=== PATIENT | female | born 1930 | race Caucasian/White ===

== ENCOUNTER 2019-04-23 10:06 | Emergency (ER) | payer MEDICARE ==
[~2019-04-23] VITALS: Ht 149.9 cm; Wt 59.0 kg
[~2019-04-23 10:06] MED LIST: ASPI81CH; ASPI81EC PO; ATEN25; BENAML10/2; CEPH500 PO; CIPR500 PO; DILT180ER PO; FERR325 PO; FURO20; FURO20 PO; OMEP20ER PO; POTCHL10ER; POTCHL20ER PO; PRED10 PO; Tylenol325 MG PO; WARF5 PO
[2019-04-23 11:04] LABS: BASOPHILS ABSOLUTE AUTO 0.05 K/mm3 (0.00-0.23); BASOPHILS PERCENT AUTO 1 % (0-2); EOSINOPHILS ABSOLUTE AUTO 0.08 K/mm3 (0.00-0.68); EOSINOPHILS PERCENT AUTO 1 % (0-6); Hematocrit 42.3 % (33.0-51.0); Hemoglobin 13.7 g/dL (11.5-16.0); IMMATURE GRAN ABSOLUTE AUTO 0.02 K/mm3 (0.00-0.10); IMMATURE GRAN PERCENT AUTO 0 % (0-1); LYMPHOCYTES PERCENT AUTO 14 % (21-46); MONOCYTES ABSOLUTE AUTO 0.47 K/mm3 (0.16-1.47); MONOCYTES PERCENT AUTO 5 % (4-13); Mean Corpuscular HGB 30.6 pg (26.0-34.0); Mean Corpuscular HGB Conc 32.4 g/dL (31.5-36.5); Mean Corpuscular Volume 95 fL (80-100); Mean Platelet Volume 10.3 fL (9.1-12.4); NEUTROPHILS ABSOLUTE AUTO 7.13 K/mm3 (1.96-9.15); NEUTROPHILS PERCENT AUTO 79 % (41-73); Platelet Count 224 K/mm3 (150-400); RDW Coefficient Variation 13.2 % (11.7-14.2); Red Blood Cell Count 4.47 M/mm3 (3.80-5.20); White Blood Cell Count 9.05 K/mm3 (4.00-11.30)
[2019-04-23 11:37] LABS: Albumin, Blood 4.1 g/dL (3.4-5.0); Bilirubin, Total 0.7 mg/dL (0.1-1.0); Bun/Creatinine Ratio 28.2 (12.0-20.0); Calcium, Blood 9.6 mg/dL (8.5-10.1); Creatinine, Blood 0.99 mg/dL (0.40-1.00); Globulin, Blood 4.3 g/dL (2.2-4.0); Total Protein, Blood 8.4 g/dL (6.4-8.2)
[2019-04-23] MEDS ORDERED: ONDA4ODT MM (12:21)
== END 2019-04-23 12:36 | disposition home or self-care (01) ==
LOC: ER 10:06
PROVIDERS: Physician Assistant
DX: K52.9 Noninfective gastroenteritis and colitis, unspecified (principal); Z88.0 Allergy status to penicillin; Z88.5 Allergy status to narcotic agent; Z79.899 Other long term (current) drug therapy
CPT/HCPCS: 36415; 80053; 83690; 85025; 96361; 96374; 96376; 99284-25; J2405; J7030

== ENCOUNTER 2020-01-21 15:33 | Emergency (ER) | payer MEDICARE ==
[~2020-01-21] VITALS: Ht 149.9 cm; Wt 62.6 kg
[~2020-01-21 15:33] MED LIST changes: +ONDA4ODT MM
[2020-01-21] MEDS ORDERED: KEFLEX500 MG PO (19:30)
== END 2020-01-21 19:59 | disposition home or self-care (01) ==
LOC: ER 15:33
DX: S81.811A Laceration without foreign body, right lower leg, initial encounter (principal); S05.10XA Contusion of eyeball and orbital tissues, unspecified eye, initial encounter; D68.9 Coagulation defect, unspecified; Z23 Encounter for immunization; Z88.0 Allergy status to penicillin; Z88.1 Allergy status to other antibiotic agents; Z88.8 Allergy status to other drugs, medicaments and biological substances; Z79.01 Long term (current) use of anticoagulants; W45.8XXA Other foreign body or object entering through skin, initial encounter
CPT/HCPCS: 12001; 90471; 90714; 99282-25; A9270-GY

== ENCOUNTER 2020-04-01 19:26 | Emergency (ER) | payer MEDICARE ==
[~2020-04-01] VITALS: Ht 152.4 cm; Wt 61.7 kg
[~2020-04-01 19:26] MED LIST changes: +KEFLEX500 MG PO
[2020-04-01 20:55] LABS: BASOPHILS ABSOLUTE AUTO 0.06 K/mm3 (0.00-0.23); BASOPHILS PERCENT AUTO 1 % (0-2); EOSINOPHILS ABSOLUTE AUTO 0.16 K/mm3 (0.00-0.68); EOSINOPHILS PERCENT AUTO 1 % (0-6); Hematocrit 40.5 % (33.0-51.0); Hemoglobin 12.8 g/dL (11.5-16.0); IMMATURE GRAN ABSOLUTE AUTO 0.03 K/mm3 (0.00-0.10); IMMATURE GRAN PERCENT AUTO 0 % (0-1); LYMPHOCYTES ABSOLUTE AUTO 2.78 K/mm3 (0.84-5.20); LYMPHOCYTES PERCENT AUTO 24 % (21-46); MONOCYTES ABSOLUTE AUTO 0.81 K/mm3 (0.16-1.47); MONOCYTES PERCENT AUTO 7 % (4-13); Mean Corpuscular HGB 30.1 pg (26.0-34.0); Mean Corpuscular HGB Conc 31.6 g/dL (31.5-36.5); Mean Corpuscular Volume 95 fL (80-100); Mean Platelet Volume 10.2 fL (9.1-12.4); NEUTROPHILS ABSOLUTE AUTO 7.63 K/mm3 (1.96-9.15); NEUTROPHILS PERCENT AUTO 67 % (41-73); Platelet Count 270 K/mm3 (150-400); RDW Standard Deviation 46.2 fL (35.1-46.3); Red Blood Cell Count 4.25 M/mm3 (3.80-5.20); White Blood Cell Count 11.47 K/mm3 (4.00-11.30)
[2020-04-01 21:09] LABS: International Normalized Ratio 3.85; Prothrombin Time Results 38.2 Sec (9.7-11.5)
[2020-04-01 21:13] LABS: Albumin, Blood 3.8 g/dL (3.4-5.0); Albumin/Globulin Ratio 0.8 (0.8-1.8); Bilirubin, Total 0.4 mg/dL (0.1-1.0); Bun/Creatinine Ratio 38.1 (12.0-20.0); Calcium, Blood 9.1 mg/dL (8.5-10.1); Creatinine, Blood 1.05 mg/dL (0.40-1.00); Globulin, Blood 4.7 g/dL (2.2-4.0); Potassium, Blood 4.8 mmol/L (3.5-5.5); Total Protein, Blood 8.5 g/dL (6.4-8.2)
== END 2020-04-01 22:00 | disposition home or self-care (01) ==
LOC: ER 19:26
PROVIDERS: Emergency Medicine
DX: S81.811A Laceration without foreign body, right lower leg, initial encounter (principal); R79.1 Abnormal coagulation profile; Z88.0 Allergy status to penicillin; Z88.5 Allergy status to narcotic agent; Z88.8 Allergy status to other drugs, medicaments and biological substances; Z79.899 Other long term (current) drug therapy; Z79.01 Long term (current) use of anticoagulants; Z79.2 Long term (current) use of antibiotics; W45.8XXA Other foreign body or object entering through skin, initial encounter
CPT/HCPCS: 36415; 80053; 85025; 85610; 85730; 99282

== ENCOUNTER 2020-10-22 11:06 | Emergency (ER) | payer MEDICARE ==
[~2020-10-22] VITALS: Ht 152.4 cm; Wt 54.4 kg
== END 2020-10-22 13:47 | disposition home or self-care (01) ==
LOC: ER 11:06
DX: S42.215A Unspecified nondisplaced fracture of surgical neck of left humerus, initial encounter for closed fracture (principal); S00.10XA Contusion of unspecified eyelid and periocular area, initial encounter; K21.9 Gastro-esophageal reflux disease without esophagitis; I50.9 Heart failure, unspecified; I48.91 Unspecified atrial fibrillation; Z79.01 Long term (current) use of anticoagulants; Z88.0 Allergy status to penicillin; Z88.5 Allergy status to narcotic agent; Z88.8 Allergy status to other drugs, medicaments and biological substances; Z79.899 Other long term (current) drug therapy; W18.30XA Fall on same level, unspecified, initial encounter
CPT/HCPCS: 96374; 96375; 99283-25; J2405; J3010

== ENCOUNTER 2021-07-26 12:25 | Inpatient (IN) | payer MEDICARE ==
[~2021-07-26] VITALS: Ht 149.9 cm; Wt 66.9 kg
[2021-07-26 13:08] LABS: BASOPHILS ABSOLUTE AUTO 0.03 K/mm3 (0.00-0.23); BASOPHILS PERCENT AUTO 0 % (0-2); EOSINOPHILS ABSOLUTE AUTO 0.01 K/mm3 (0.00-0.68); EOSINOPHILS PERCENT AUTO 0 % (0-6); Hematocrit 29.5 % (33.0-51.0); Hemoglobin 9.6 g/dL (11.5-16.0); IMMATURE GRAN ABSOLUTE AUTO 0.04 K/mm3 (0.00-0.10); IMMATURE GRAN PERCENT AUTO 0 % (0-1); LYMPHOCYTES PERCENT AUTO 14 % (21-46); MONOCYTES ABSOLUTE AUTO 0.89 K/mm3 (0.16-1.47); MONOCYTES PERCENT AUTO 8 % (4-13); Mean Corpuscular HGB 30.7 pg (26.0-34.0); Mean Corpuscular HGB Conc 32.5 g/dL (31.5-36.5); Mean Corpuscular Volume 94 fL (80-100); Mean Platelet Volume 10.5 fL (9.1-12.4); NEUTROPHILS ABSOLUTE AUTO 9.11 K/mm3 (1.96-9.15); NEUTROPHILS PERCENT AUTO 78 % (41-73); Platelet Count 260 K/mm3 (150-400); Red Blood Cell Count 3.13 M/mm3 (3.80-5.20); White Blood Cell Count 11.68 K/mm3 (4.00-11.30)
[2021-07-26 13:23] LABS: Prothrombin Time Results >90.0 Sec (9.7-11.5)
[2021-07-26 13:24] LABS: International Normalized Ratio >10.00
[2021-07-26] MEDS ORDERED: DILTIAZEM 24HR120 M4 PO (14:15)
[2021-07-26] MEDS ORDERED: ATORVASTATIN CA20 MG PO (14:15)
[2021-07-26] MEDS ORDERED: SPIRONOLACTONE25 MG PO (14:15)
[2021-07-26] MEDS ORDERED: JANTOVEN2 MG PO (14:15)
[2021-07-26 16:29] LABS: Albumin, Blood 3.2 g/dL (3.4-5.0); Albumin/Globulin Ratio 0.7 (0.8-1.8); Bilirubin, Total 1.2 mg/dL (0.1-1.0); Bun/Creatinine Ratio 31.8 (12.0-20.0); Calcium, Blood 9.1 mg/dL (8.5-10.1); Creatinine, Blood 0.91 mg/dL (0.40-1.00); Globulin, Blood 4.3 g/dL (2.2-4.0); Potassium, Blood 4.1 mmol/L (3.5-5.5); Total Protein, Blood 7.5 g/dL (6.4-8.2)
[2021-07-26 16:30] LABS: Calcium, Ionized (POC) 1.14 mmol/L (1.10-1.46); Chloride (POC) 101 mmol/L (98-108); Creatinine (POC) 0.8 mg/dL (0.6-1.0); Glucose (ISTAT POC) 137 mg/dL (70-99); Hemoglobin (POC) 8.5 g/dL (12.0-16.0); Potassium (POC) 4.4 mmol/L (3.5-5.5); Sodium (POC) 135 mmol/L (135-148); Total CO2 (POC) 25 mmol/L (21-32)
[2021-07-27 03:59] LABS: BASOPHILS ABSOLUTE AUTO 0.02 K/mm3 (0.00-0.23); BASOPHILS PERCENT AUTO 0 % (0-2); EOSINOPHILS ABSOLUTE AUTO 0.01 K/mm3 (0.00-0.68); EOSINOPHILS PERCENT AUTO 0 % (0-6); Hematocrit 22.1 % (33.0-51.0); Hemoglobin 7.3 g/dL (11.5-16.0); IMMATURE GRAN ABSOLUTE AUTO 0.03 K/mm3 (0.00-0.10); IMMATURE GRAN PERCENT AUTO 0 % (0-1); LYMPHOCYTES ABSOLUTE AUTO 2.05 K/mm3 (0.84-5.20); LYMPHOCYTES PERCENT AUTO 22 % (21-46); MONOCYTES ABSOLUTE AUTO 1.02 K/mm3 (0.16-1.47); MONOCYTES PERCENT AUTO 11 % (4-13); Mean Corpuscular HGB 31.1 pg (26.0-34.0); Mean Corpuscular Volume 94 fL (80-100); Mean Platelet Volume 10.3 fL (9.1-12.4); NEUTROPHILS ABSOLUTE AUTO 6.33 K/mm3 (1.96-9.15); NEUTROPHILS PERCENT AUTO 67 % (41-73); Platelet Count 192 K/mm3 (150-400); RDW Coefficient Variation 14.1 % (11.7-14.2); RDW Standard Deviation 47.8 fL (35.1-46.3); Red Blood Cell Count 2.35 M/mm3 (3.80-5.20); White Blood Cell Count 9.46 K/mm3 (4.00-11.30)
[2021-07-27 04:15] LABS: International Normalized Ratio 1.7; Prothrombin Time Results 17.2 Sec (9.7-11.5)
[2021-07-27 04:23] LABS: Albumin, Blood 2.7 g/dL (3.4-5.0); Albumin/Globulin Ratio 0.7 (0.8-1.8); Calcium, Blood 8.3 mg/dL (8.5-10.1); Creatinine, Blood 0.97 mg/dL (0.40-1.00); Globulin, Blood 3.8 g/dL (2.2-4.0); Total Protein, Blood 6.5 g/dL (6.4-8.2)
--- NOTE | 2021-07-27 05:52 | NUR ---
SHIFT SUMMARY PT ARRIVED FROM ED AT 2129. PT IS A&O X4, C/O HEADACHE, PAIN MEDS GIVEN PER EMAR. PT HAS SLEPT FOR A MAJORITY OF THE TIME SINCE ARRIVING. VSS.
--- NOTE | 2021-07-27 06:25 | NUR ---
PLASMA 4 UNITS ORIGINALLY ORDERED FOR PT. PER BLOOD BANK, 2U ADMINISTERED AND ER NOT NEEDING ANYMORE. BUT THESE WERE PULLED FOR PT. BLOODBANK SENT DOWN PAPER SLIPS JUST IN CASE PT WOULD NEED THEM IN THE NEAR FUTURE BUT THE TWO EXTRA UNITS ARE NOT TO BE GIVEN CURRENTLY.
[2021-07-27 09:12] LABS: Source, Urine Clean Catch
[2021-07-27 09:24] LABS: Appearance, Urine Cloudy (Clear); Bilirubin, Urine Neg (Neg); Blood, Urine 4+ (Neg); Color, Urine Yellow (P-Yellow); Glucose Qualitative, Urine Neg (Neg); Ketones, Urine Neg (Neg); Leukocyte Esterase, Urine 3+ (Neg); Nitrite, Urine Neg (Neg); Protein, Urine 2+ (Neg); Urobilinogen, Urine 1+ (Normal)
[2021-07-27 09:48] LABS: White Blood Cells, Urine TNTC /hpf (0-5)
[2021-07-27 09:49] LABS: Bacteria Many /hpf; Squamous Epithelial Cells Few /hpf (Few)
[2021-07-27 13:22] LABS: Hematocrit 22.2 % (33.0-51.0); Hemoglobin 7.3 g/dL (11.5-16.0)
--- NOTE | 2021-07-27 17:26 | NUR ---
REPORT GIVEN TO AXEL RAM. PATIENT TRANSFER VIA W/C TO [facility]. NO S/S CARDIOPULMONARY DISTRESS OBSERVED OR NOTED. NO S/S OF ICP - I.E. DISTENDED JUGULAR VEINS, VOMITING... VS STABLE (SBP LESS THAN 150). PRESENTLY DENIES N/V OR DIZZINESS.
--- NOTE | 2021-07-27 18:19 | NUR ---
ASSUMED CARE OF PT AT APPROX 1805. PT A/OX3. VITAL SIGNS TAKEN AT THAT TIME. PT REPORTS NO PAIN AT THIS TIME. BELONGINGS BROUGHT WITH PT. PT RESTING AT THIS TIME. WILL REPORT TO ONCOMING RN.
--- NOTE | 2021-07-27 19:45 | NUR ---
RECEIVED REPORT FROM DAY SHIFT RN. PT LYING QUIETLY IN BED WITH EYES CLOSED AND EVEN, UNLABORED RESPIRATIONS. WILIAM.
[2021-07-28 04:52] LABS: Hematocrit 22.4 % (33.0-51.0); Hemoglobin 7.4 g/dL (11.5-16.0); Mean Corpuscular HGB 31.5 pg (26.0-34.0); Mean Corpuscular Volume 95 fL (80-100); Platelet Count 189 K/mm3 (150-400); RDW Coefficient Variation 14.1 % (11.7-14.2); RDW Standard Deviation 49.1 fL (35.1-46.3); Red Blood Cell Count 2.35 M/mm3 (3.80-5.20); White Blood Cell Count 8.53 K/mm3 (4.00-11.30)
[2021-07-28 05:05] LABS: International Normalized Ratio 1.63; Prothrombin Time Results 16.6 Sec (9.7-11.5)
[2021-07-28 05:11] LABS: Calcium, Blood 8.6 mg/dL (8.5-10.1); Creatinine, Blood 0.97 mg/dL (0.40-1.00); Potassium, Blood 3.9 mmol/L (3.5-5.5)
--- NOTE | 2021-07-28 05:42 | NUR ---
SHIFT SUMMARY: NARESH IS A&OX3. VSS, NO ACUTE EVENTS OVERNIGHT. SHE IS A TWO PERSON MOD/MAX ASSIST TO THE BEDSIDE COMMODE WITH THE FWW AND GAIT BELT. SHE IS TOLERATING PO INTAKE WELL, DENIES THE NEED FOR PAIN MEDICATION, AND IS URINATING WITHOUT DIFFICULTY. SHE USES THE CALL LIGHT APPROPRIATELY. SHE IS LYING IN BED WITH HER EYES CLOSED AND EVEN, UNLABORED RESPIRATIONS. CALL LIGHT IN REACH. WILL REPORT TO DAY SHIFT RN.
--- NOTE | 2021-07-28 16:29 | NUR ---
SHIFT SUMMARY A/OX3 AND V/S/S. WENT FOR REPEAT CT OF HEAD TODAY, REPORT OF HEMORRHAGE STABLE TO SLIGHTLY DECREASED COMPARED TO PREVIOUS CT. PT REPORT OF HEADACHE TODAY X1 AND TREATED PER EMAR WITH TYLENOL. REPORTED DIZZINESS THIS AM WHEN UP TO BEDSIDE COMMODE, BUT UP SEVERAL TIMES SINCE AND NO DIZZINESS REPORTED. NEURO CHECK DONE AND PUPILS REACTIVE TO LIGHT AND TRACKING SYMETRICALLY. BRUISING THROUGHOUT EXTREMETIES APPEARS UNCHANGED. WILL REPORT TO ONCOMING RN.
[2021-07-29 04:13] LABS: International Normalized Ratio 1.71; Prothrombin Time Results 17.3 Sec (9.7-11.5)
--- NOTE | 2021-07-29 06:32 | NUR ---
SHIFT SUMMARY: NARESH IS A&OX3. VSS, NO ACUTE EVENTS OVERNIGHT. SHE DOES CONTINUE TO COMPLAIN OF DIZZINESS, ESPECIALLY WHEN STANDING TO TRANSFER TO THE BEDSIDE COMMODE. SHE IS TOLERATING PO INTAKE WELL. SHE DOES STATE THAT HER COMMODE AT HOME IS LOW TO THE GROUND, MAKING IT DIFFICULT TO USE. SHE ALSO STATES THAT HER HELPS HER TO GET AROUND. SHE IS A ONE TO TWO PERSON MOD ASSIST THIS SHIFT. SHE HAS URINATED MULTIPLE TIMES DURING THE NIGHT. SHE IS LYING IN BED WITH THE CALL LIGHT IN REACH. WILL REPORT TO DAY SHIFT RN.
--- NOTE | 2021-07-29 13:54 | NUR ---
PT C/O OF PERSISTANT LANDRUM. REPORTS HAS NOT INCREASED OR DECREASED IN INTENSITY. PUPILS PINPOINT BUT EQUAL. PT ALERT. TONGUE MIDLINE AND SMILE EQUAL. FINANCIAL DATA ANALYST EQUAL. FOLLOWS COMMANDS. RESTING IN BED AT THIS TIME. DECLINED OFFER FOR TYLENOL OR ICE PACK FOR LANDRUM. REPORTED TO DR MILLNA.
--- NOTE | 2021-07-29 17:12 | NUR ---
SUMMARY PT HAS HAD PERSISTANT LANDRUM T/O SHIFT. REPORTS HAS NOT INCREASED/DECREASED. ALERT, APPEARS ORIENTED FOR MOST PART BUT DOES RAMBLE AT TIMES. DECLINED TYLENOL OR ICE PACK FOR COMFORT. PT VERY WEAK, REQUIRES 1-2 PERSON MOD ASSIST TO STAND AND TRANSFER FROM BED TO BSC. PT/OT SEEING PT. PT DISHEVELED, REC'D BED BATH TODAY. SPOUSE IN TO SEE PT THIS AFTERNOON. PT REQUESTING BSC AND FWW FOR DC. PT RELUCTANT TO GO TO SNF, WHICH IS RECOMMENDED. BOWEL CARE STARTED THIS SHIFT.
[2021-07-30 04:53] LABS: International Normalized Ratio 1.7; Prothrombin Time Results 17.2 Sec (9.7-11.5)
--- NOTE | 2021-07-30 07:51 | NUR ---
SUMMARY PT FREQUENT VOIDING.UTI DX ON ADMIT.BLADDER SCAN PRIOR TO VOID WITH URGE NOTED-221 ML. PT WAS REPORTED TO BE POSSIBLY TRANSFERRING TO HIGHER LEVEL OF CARE.PT L FOOT SLIGHTLY WEAKER THAN R NOTED AFTER BEING OUT OF BED SEVERAL TIMES.PT REPORTS THIS IS NOT UNUSUAL FOR HER WHEN SHE HAS BEEN ACTIVE DURING DAY.
--- NOTE | 2021-07-30 10:48 | NUR ---
COORDINATING SPOUSE TO COME IN AND MEET W/PHYSICAL THERAPY. SPOKE TO BRODERICK M/PT AND SPOUSE. SPOUSE TO COME IN AND WORK W/PATIENT AND BRODERICK DURING THERAPY SESSION.
--- NOTE | 2021-07-30 11:48 | NUR ---
SPOUSE AT BEDSIDE THERAPY IN TO SEE PT AND SPOUSE. NOTIFIED DR MILLAN OF 'S ARRIVAL.
--- NOTE | 2021-07-30 13:23 | NUR ---
PT AND SPOUSE STILL DECLINING SNF AT THIS TIME.
--- NOTE | 2021-07-30 14:06 | NUR ---
WORKING W/LORI FROM OT.
--- NOTE | 2021-07-30 14:22 | NUR ---
TEOFILO DEL REAL DC VEGETABLE FARMING SUPERVISOR LM NOTIFYING DC VEGETABLE FARMING SUPERVISOR THAT SPOUSE DID MEET W/PHYSICAL THERAPY.
--- NOTE | 2021-07-30 17:14 | NUR ---
SUMMARY PT AND SPOUSE CONTINUE TO REFUSE SNF RECOMMENDATION. PT AND SPOUSE WORKED W/PT AND OT THIS SHIFT. NOW AMBULATING TO RESTROOM W/FWW AND GAIT BELT. SAT UP IN CHAIR MULTIPLE TIMES DURING SHIFT. DIZZINESS SEEMS TO BE IMPROVING. UP IN CHAIR AT THIS TIME. CALL LIGHT IN REACH.
--- NOTE | 2021-07-31 02:17 | NUR ---
EAR ACHE PT C/O MILD EAR ACHE IN L EAR. TYLENOL GIVEN, PT REPORTS SHE BELIEVES TYLENOL IS BAD FOR HER KIDNEYS, EDUCATED ON IT BEING SAFE IN MODERATION. PT REPORTS THAT THE LAST TIME SHE GOT AN EAR ACHE SHE FLUSHED IT WITH WARM WATER AND IT RESOLVED BY FLUSHING SOME WAX OUT. PER THE PATIENTS REQUEST, THIS WAS DONE BY GENTLY FLUSHING WARM WATER INTO THE VISIBLE AREA OF THE EAR CANAL WITH A SYRINGE WHICH WAS THEN SUCTIONED OUT, PATIENT POSITIONED ON HER LEFT SIDE WITH A WASH CLOTH UNDER HER EAR TO CATCH ANY RESIDUAL WATER. PT REPORTS FEELING MUCH BETTER AND EAR ACHE GOING AWAY. VISUAL INSPECTION DOES NOT SHOW ANY REDNESS AND PT REPORTS NO TENDERNESS TO OUTER EAR OR INNER EAR AT THIS TIME. WILL CTM
[2021-07-31 04:42] LABS: International Normalized Ratio 1.54; Prothrombin Time Results 15.7 Sec (9.7-11.5)
--- NOTE | 2021-07-31 06:33 | NUR ---
SHIFT SUMMARY S/P INTRACRANIAL BLEED, A/O X4, VSS, TOLERATING PO, DENIES PAIN, C/O EAR ACHE WHICH WAS ALLEVIATED c TYLENOL AND A WARM WATER FLUSH (SEE NURSE NOTES), NO EAR PAIN AFTER FLUSH WAS COMPLETED, NO RESIDUAL DRAINAGE NOTED FROM PT EAR, 1 PERSON ASSIST TO BATHROOM. NO ACUTE EVENTS THIS SHIFT. CALL LIGHT IN REACH, WILL CTM AND REPORT TO ONCOMING DAY RN.
[2021-07-31] MEDS ORDERED: DOXY100 PO (11:50)
--- NOTE | 2021-07-31 15:04 | NUR ---
DISCHARGE THIS RN EXPLAINED DISCHARGE INSTRUCTIONS AND MEDICATIONS AND SHE REPORTS SHE UNDERSTANDS. IVS REMOVED WITHOUT DIFFICULTY. PT'S FWW HERE FROM [facility]. PT'S SPOUSE TO BE BACK TO TAKE PT HOME.
== END 2021-07-31 16:23 | disposition home or self-care (01) | DRG 65 ==
LOC: ER 12:25 → PCU 12:26 → SURS 07-27 18:00
PROVIDERS: Emergency Medicine; Internal Medicine; ADMIT Internal Medicine
PROC: 30233K1 Transfusion of Nonautologous Frozen Plasma into Peripheral Vein, Percutaneous Approach (ICD-10-PCS; principal; 2021-07-26)
DX: I61.9 Nontraumatic intracerebral hemorrhage, unspecified (principal); N39.0 Urinary tract infection, site not specified; D68.32 Hemorrhagic disorder due to extrinsic circulating anticoagulants; T45.515A Adverse effect of anticoagulants, initial encounter; E78.5 Hyperlipidemia, unspecified; I11.0 Hypertensive heart disease with heart failure; I48.0 Paroxysmal atrial fibrillation; I50.9 Heart failure, unspecified; D64.9 Anemia, unspecified; K21.9 Gastro-esophageal reflux disease without esophagitis; Z88.0 Allergy status to penicillin; Z88.5 Allergy status to narcotic agent; Z88.8 Allergy status to other drugs, medicaments and biological substances; Z79.01 Long term (current) use of anticoagulants; Z79.899 Other long term (current) drug therapy; Z85.3 Personal history of malignant neoplasm of breast; Z85.42 Personal history of malignant neoplasm of other parts of uterus; Z90.710 Acquired absence of both cervix and uterus; Z90.49 Acquired absence of other specified parts of digestive tract; Z90.89 Acquired absence of other organs; Z98.890 Other specified postprocedural states
CPT/HCPCS: 36415; 36430; 70450; 70496; 80047; 80048; 80053; 81001; 85014; 85018; 85025; 85027; 85610; 86900; 86901; 87077; 87086; 87186; 96365; 96372-59; 96375; 96376; 97110; 97116; 97162; 97166; 97530; 97535; 99285-25; A9270; G0378; J2405; J3010; J3430; J7030; J7168; P9059; Q9967